=== PATIENT | female | born 1960 | race Caucasian/White ===

== ENCOUNTER 2018-09-20 19:48 | Observation (INO) | payer OTHER ==
[~2018-09-20] VITALS: Ht 165.1 cm; Wt 66.5 kg
[2018-09-20 20:03] LABS: BASO % 0.3 % (0.0-1.0); EOS # 0.1 10^3/uL (0.0-0.50); HEMATOCRIT 38.6 % (36.0-47.0); HEMOGLOBIN 13.1 g/dl (12.0-15.5); LYMPH # 2.7 10^3/uL (1.5-4.5); LYMPH % 29.2 % (24.0-44.0); MEAN CORPUSCULAR HEMOGLOBIN 30.9 pg (27.0-33.0); MEAN CORPUSCULAR HGB CONC 33.9 g/dl (32.0-36.5); MONO # 0.7 10^3/uL (0.0-0.8); MONO % 7.4 % (0.0-5.0); NEUTROPHILS # 5.7 10^3/uL (1.8-7.7); NEUTROPHILS % 61.8 % (36.0-66.0); PLATELET COUNT, AUTOMATED 184 10^3/uL (150-450); RED BLOOD COUNT 4.24 10^6/uL (4.00-5.40); WHITE BLOOD COUNT 9.3 10^3/uL (4.0-10.0)
[2018-09-20] MEDS ORDERED: ONDANSETRON 4MG/2ML VIAL (J2405) IV ONE (20:15)
[2018-09-20] MEDS ORDERED: NS 1,000 ML IV ONE ×2 (20:15→22:15)
--- NOTE | 2018-09-20 20:22 | REP ---
Clinical: Acute chest pain . Comparison: None . Findings: The mediastinum and cardiac silhouette are stable and within normal limits for portable technique. The lung lin demonstrate chronic-appearing interstitial changes without acute consolidation, effusion, or pneumothorax. Skeletal structures are intact. Impression: No definite acute cardiopulmonary process appreciated. Electronically Signed by Bo Martinez MD 09/20/2018 08:14 P
[2018-09-20] MEDS ORDERED: ISOVUE-370 76% 100ML VIAL (Q9967) As Ordered ONE (20:23)
[2018-09-20 20:34] LABS: BLOOD UREA NITROGEN 22 MG/DL (7-18); CARBON DIOXIDE LEVEL 22 MEQ/L (21-32); CHLORIDE LEVEL 103 MEQ/L (98-107); CPK CREATINE PHOSPHOKINASE 143 U/L (26-192); CREATININE FOR GFR 0.85 MG/DL (0.55-1.30); ETHYL ALCOHOL (ETHANOL) < 0.003 % (0.000-0.010); GLOMERULAR FILTRATION RATE > 60.0 (>51); GLUCOSE, FASTING 184 MG/DL (70-100); POTASSIUM SERUM 3.2 MEQ/L (3.5-5.1); SODIUM LEVEL 138 MEQ/L (136-145); TROPONIN I 0.03 NG/ML (< 0.10)
--- NOTE | 2018-09-20 21:29 | REPVR ---
EXAM: CT Head Without Contrast EXAM DATE/TIME: 09/20/2018 8:48 PM CLINICAL HISTORY: 58 years old, female; Signs and symptoms; Dizziness; Additional info: Intractable dizziness, neck pain TECHNIQUE: Imaging protocol: Axial computed tomography images of the head without contrast. Radiation optimization: All CT scans at this facility use at least one of these dose optimization techniques: automated exposure control; mA and/or kV adjustment per patient size (includes targeted exams where dose is matched to clinical indication); or iterative reconstruction. COMPARISON: No relevant prior studies available. FINDINGS: Brain: There is no evidence of intracranial bleed. There is no evidence of mass effect. The carter-white differentiation appears preserved. Ventricles: Normal appearing ventricles. Bones/joints: There is no evidence of fracture. Sinuses: There is opacification of the left maxillary sinus consistent with changes of sinusitis. Clear ethmoid sinuses. Mastoid air cells: Clear mastoid air cells. Soft tissues: Unremarkable. IMPRESSION: 1. No evidence of bleed. 2. No evidence of mass effect. Electronically signed by: Chino Du On 09/20/2018 21:29:03 PM
[2018-09-20 21:50] LABS: AMPHETAMINES LEVEL URINE NEGATIVE (NEGATIVE); BARBITURATES URINE NEGATIVE (NEGATIVE); BENZODIAZEPINES URINE NEGATIVE (NEGATIVE); CANNABINOIDS URINE NEGATIVE (NEGATIVE); COCAINE METABOLITE URINE NEGATIVE (NEGATIVE); METHADONE URINE NEGATIVE (NEGATIVE); OPIATES URINE NEGATIVE (NEGATIVE); PHENCYCLIDINE URINE NEGATIVE (NEGATIVE)
--- NOTE | 2018-09-20 21:52 | REPVR ---
EXAM: CT Angiography Head With Contrast EXAM DATE/TIME: 09/20/2018 8:48 PM CLINICAL HISTORY: 58 years old, female; Signs and symptoms; Dizziness and giddiness; Additional info: Intractable dizziness, neck pain TECHNIQUE: Imaging protocol: Axial computed tomographic angiography images of the head with intravenous contrast using CT angiography protocol. 3D rendering: MIP and/or 3D reconstructed images were created and reviewed. COMPARISON: No relevant prior studies available. FINDINGS: Right internal carotid artery: Unremarkable. Intracranial segment is patent with no significant stenosis. No aneurysm. Right anterior cerebral artery: Unremarkable. No occlusion or significant stenosis. No aneurysm. Right middle cerebral artery: Unremarkable. No occlusion or significant stenosis. No aneurysm. Right posterior cerebral artery: Unremarkable. No occlusion or significant stenosis. No aneurysm. Right vertebral artery: Unremarkable. No occlusion or significant stenosis. No aneurysm. Left internal carotid artery: Unremarkable. Intracranial segment is patent with no significant stenosis. No aneurysm. Left anterior cerebral artery: Unremarkable. No occlusion or significant stenosis. No aneurysm. Left middle cerebral artery: Unremarkable. No occlusion or significant stenosis. No aneurysm. Left posterior cerebral artery: Unremarkable. No occlusion or significant stenosis. No aneurysm. Left vertebral artery: Unremarkable. No occlusion or significant stenosis. No aneurysm. Basilar artery: Unremarkable. No occlusion or significant stenosis. No aneurysm. 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 Near complete opacification of the maxillary sinuses bilaterally which are hypoplastic. IMPRESSION: 1. Normal CTA Of the Cir., [place]. 2. Normal CTA of the vertebrobasilar system. 3. Complete opacification of the maxillary sinuses bilaterally. They appear hypoplastic. EXAM: CT Angiography Neck With Contrast EXAM DATE/TIME: 09/20/2018 8:48 PM CLINICAL HISTORY: 58 years old, female; Signs and symptoms; Dizziness and giddiness; Additional info: Intractable dizziness, neck pain TECHNIQUE: Imaging protocol: Axial computed tomographic angiography images of the neck with intravenous contrast using CT angiography protocol. Coronal and sagittal reformatted images were created and reviewed. 3D rendering: MIP reconstructed images were created and reviewed. MIP and/or 3D reconstructed images were created and reviewed. Radiation optimization: All CT scans at this facility use at least one of these dose optimization techniques: automated exposure control; mA and/or kV adjustment per patient size (includes targeted exams where dose is matched to clinical indication); or iterative reconstruction. Contrast material: ISOVUE 370; Contrast volume: 100 ml; Contrast route: IV; COMPARISON: No relevant prior studies available. FINDINGS: Artifact related to dental fillings and motion artifact degrade the images of the neck. VASCULATURE: Right common carotid artery: Normal. No stenosis. No dissection or occlusion. Right internal carotid artery: The right mid internal carotid artery is not optimally delineated secondary to motion and artifact generated by dental fillings.. There is a suggestion of an approximate 15% stenosis. Right external carotid artery: Normal. No occlusion or stenosis. Right vertebral artery: Normal. No stenosis. No dissection or occlusion. Left common carotid artery: Normal. No stenosis. No dissection or occlusion. Left internal carotid artery: Calcified plaque noted in the left carotid bulb extending into the proximal internal carotid artery. No stenosis in the left internal carotid artery. Left external carotid artery: Normal. No stenosis. No dissection or occlusion. Left vertebral artery: Normal. No stenosis. No dissection or occlusion. Other vasculature: NECK: Bones/joints: No acute fracture. Soft tissues: Normal. No significant soft tissue swelling. IMPRESSION: 1. Suboptimal examination due to motion artifact. 2. Approximate 50% stenosis of the right mid internal carotid artery. 3. Plaque in the left carotid bulb extending into the proximal internal carotid artery. No stenosis. 4. Normal CTA of the vertebrobasilar system. COMMENT: Reference per NASCET criteria for degree of stenosis: Mild: less than 50% stenosis. Moderate: 50-69% stenosis. Severe: 70-94% stenosis. Near occlusion: 95-99% stenosis. Electronically signed by: Елена Sutton On 09/20/2018 21:52:05 PM
[2018-09-20] MEDS ORDERED: LORazepam 2 MG/ML VIAL (J2060) IV STA (22:06)
[2018-09-20] MEDS: MECLIZINE 25 MG TABLET PO ONE ×2 (22:15→22:17)
[2018-09-20] MEDS ORDERED: METOCLOPRAMIDE INJ 10MG/2ML VIAL (J2765) IV ONE (22:15)
[2018-09-20] MEDS ORDERED: POTASSIUM CHLORIDE 10 MEQ SR TABLET PO ONE (23:15)
--- NOTE | 2018-09-21 00:01 | REPVR ---
EXAM: MR Head Without Contrast EXAM DATE/TIME: 09/20/2018 10:06 PM CLINICAL HISTORY: 58 years old, female; Signs and symptoms; Dizziness; Additional info: Intractable dizziness TECHNIQUE: Imaging protocol: MR of the head without contrast. COMPARISON: CT Head without contrast 09/20/2018 8:24 PM FINDINGS: Brain: There is no evidence of abnormal bright signal intensity within the brain. There is no evidence of mass effect. Brainstem: The brainstem is normal in size. Ventricles: Normal appearing ventricles. Bones/joints: Unremarkable. Soft tissues: Normal. Sinuses: There is opacification of the maxillary sinuses bilaterally consistent with changes of chronic sinusitis. Mucous retention cysts or polyps could not be excluded. Mastoid air cells: Normal as visualized. No mastoid effusion. Orbits: Unremarkable. Sella: The suprasellar or pineal region appears within the range of normal. Other vasculature: The vessels of the ute of [place] have a normal signal void. IMPRESSION: Normal upper MRI scan of brain. Opacification of the maxillary sinuses consistent with changes of previous sinusitis. Electronically signed by: Chino Du On 09/21/2018 00:00:34 AM
[2018-09-21] MEDS ORDERED: CO Q200C10 PO (00:27)
[2018-09-21] MEDS ORDERED: B COTAB3 PO (00:27)
[2018-09-21] MEDS ORDERED: ALL10TAB28 PO (00:27)
[2018-09-21] MEDS ORDERED: OMEP-221 PO (00:27)
[2018-09-21] MEDS ORDERED: PRESCAP PO (00:27)
[2018-09-21] MEDS ORDERED: NS 1,000 ML IV SCH (01:00)
--- NOTE | 2018-09-21 01:21 | HPEPDOC ---
General Date of Admission September 21, 2018 at 00:18 Date of Service: September 21, 2018 Chief Complaint The patient is a 58-year-old female admitted with a reason for visit of Vertigo. Source: Patient, Family, RN/MD Exam Limitations: Clinical conditions Severity: Severe Associated Symptoms: Nausea, Vomiting, Dizziness History of Present Illness 58 year old female with PMH of GERD and Macular degeneration presented to the ED with sudden onsent vertigo. The patient was at a healthcare receptionist this evening. At around 7 pm she was coming out of te restruant and had to walk down several flights of stairs .As she reached the bottom she suddenly felt nauseous and dizzy she sat down at the bottom stairs but the symptoms did not improve. She could not open her eyes as everything was spinning. She was brought to the ED. In the ED she had an extensive work up done including MRI of brain and CT angio of the neck both of which were negative. She got a dose of meclizine and ativan in the ED. by she threw up the meclizine. She continued to have persistent symptoms and could not even sit up in bed without feeling nauseous and throwing up. On My interview patient she is lying down still in bed with her eyes closed. She says opening her eyes is making her nauseous as everything is spinning. Does not want to move her head from side to side as that also is giving her spinning sensation. SHe is unable to roll from side to side as she feels that she is going to fall off the bed and is becoming extremely nauseous. Unable to sit up or stand. She is being admitted for acute Vertigo. Home Medications Scheduled Omeprazole (Omeprazole) 40 Mg Capsule.dr, 40 MG PO DAILY, (Reported) Ubidecarenone (Co Q-10) 200 Mg Capsule, 200 MG PO DAILY, (Reported) Vit A/Vit C/Vit E/Zinc/Copper (Preservision Areds Softgel) 1 Each Capsule, 1 CAP PO BID, (Reported) Vitamin B Complex (Vitamin B Complex) 1 Each Tablet, 1 TAB PO DAILY, (Reported) Scheduled PRN Cetirizine HCl (Cetirizine HCl) 10 Mg Tablet, 10 MG PO QPM PRN for ALLERGIES, (Reported) Allergies Coded Allergies: Penicillins (Unverified Allergy, Unknown, 09/21/18) Sulfa (Sulfonamide Antibiotics) (Verified Allergy, Unknown, 09/20/18) Past Medical History Medical History GERD, Macular degeneration Surgical History Left knee arthroscopy Family History Reviewed with patient no significant family history Social History * Smoker: Denies Alcohol: Denies Drugs: denies A-FIB/CHADSVASC A-FIB History Current/History of A-Fib/PAF?: No Review of Systems Constitutional: Denies: Chills, Fever, Night Sweats Eyes: Denies: Pain, Vision change ENT: Denies: Head Aches, Ear Pain, Dysphagia Skin: Denies: Rash, Lesions, Breakdown Pulmonary: Denies: Dyspnea, Cough Cardiovascular: Denies: Chest Pain, Palpitations, Orthopnea, Paroxysmal Noc. Dyspnea, Lt Headedness Gastrointestinal: Reports: Nausea, Vomiting Hematologic: Denies: Bruising, Bleeding Excessively Musculoskeletal: Denies: Neck Pain, Back Pain, Joint Pain, Muscle Pain, Spasms Neurological: Denies: Weakness, Numbness, Change in speech, Confusion Psych: Reports: Mood Normal; Denies: Depression, Memory Issues Physical Examination General Exam: Positive: Alert, Cooperative, Moderate Distress Eye Exam: Positive: PERRLA, Conjunctiva & lids normal, Other Eye Symptoms (very prominent Horizontal nystagmus noted with the fast compoment in both directions depending on which side the head is turned.) ENT Exam: Positive: Atraumatic, Mucous membr. moist/pink, Pharynx Normal, Tympanic Membranes Normal, Ext Auditory Canal Nml, Pinna Normal Neck Exam: Positive: Supple; Negative: JVD, thyromegaly Chest Exam: Positive: Clear to auscultation, Normal air movement Heart Exam: Positive: Rate Normal, Regular Rhythm, Normal S1, Normal S2; Negative: Murmurs, Rubs Abdomen Exam: Positive: Normal bowel sounds, Soft; Negative: Tenderness, Hepatospenomegaly Extremity Exam: Positive: Normal pulses; Negative: Clubbing, Cyanosis, Edema Skin Exam: Positive: Nl turgor and temperature; Negative: Breakdown, Lesion Neuro Exam: Positive: Strength at 5/5 X4 ext, Normal Tone Vital Signs Vital Signs Date Time Temp Pulse Resp B/P (MAP) Pulse Ox O2 Delivery O2 Flow Rate FiO2 09/21/18 00:15 110 18 98 Room Air 09/20/18 22:45 135/66 (89) 09/20/18 21:06 96.1 Laboratory Data Labs 24H Laboratory Tests 2 09/20/18 19:57: Immature Granulocyte % (Auto) 0.3, White Blood Count 9.3, Red Blood Count 4.24, Hemoglobin 13.1, Hematocrit 38.6, Mean Corpuscular Volume 91.0, Mean Corpuscular Hemoglobin 30.9, Mean Corpuscular Hemoglobin Concent 33.9, Red Cell Distribution Width 12.9, Platelet Count 184, Neutrophils (%) (Auto) 61.8, Lymphocytes (%) (Auto) 29.2, Monocytes (%) (Auto) 7.4H, Eosinophils (%) (Auto) 1.0, Basophils (%) (Auto) 0.3, Neutrophils # (Auto) 5.7, Lymphocytes # (Auto) 2.7, Monocytes # (Auto) 0.7, Eosinophils # (Auto) 0.1, Basophils # (Auto) 0.0, Nucleated Red Blood Cells % (auto) 0.0, Anion Gap 13, Glomerular Filtration Rate > 60.0, Blood Urea Nitrogen 22H, Creatinine 0.85, Sodium Level 138, Potassium Level 3.2L, Chloride Level 103, Carbon Dioxide Level 22, Calcium Level 9.0, Total Creatine Kinase 143, Creatine Kinase MB 2.0, Creatine Kinase MB Relative Index 1.40, Troponin I 0.03, Ethyl Alcohol Level < 0.003 09/20/18 20:13: POC Glucose (Misc Panel) 191H, POC Sodium (Misc Panel) 137, POC Potassium (Misc Panel) 3.1L, POC Chloride (Misc Panel) 101, POC Total CO2 (Misc Panel) 25.0, POC Blood Urea Nitrogen (Misc Panel 23, POC Ionized Calcium (Misc Panel) 4.4L, POC Creatinine (Misc Panel) 0.8, POC Hematocrit (Misc Panel) 39.0 09/20/18 21:06: Urine Color YELLOW, Urine Appearance HAZY, Urine pH 6.0, Urine Specific [place] 1.026, Urine Protein NEGATIVE, Urine Glucose (UA) 1+H, Urine Ketones 1+H, Urine Blood NEGATIVE, Urine Nitrite NEGATIVE, Urine Bilirubin NEGATIVE, Urine Urobilinogen 0.2, Urine Leukocyte Esterase NEGATIVE, Urine WBC (Auto) 1, Urine RBC (Auto) 1, Urine Hyaline Casts (Auto) 1, Urine Bacteria (Auto) NEGATIVE, Urine Squamous Epithelial Cells 0, Urine Sperm (Auto) , Lactic Acid Level 1.5, Urine Amphetamines Screen NEGATIVE, Urine Benzodiazepines Screen NEGATIVE, Urine Opiates Screen NEGATIVE, Urine Methadone Screen NEGATIVE, Urine Barbiturates Screen NEGATIVE, Urine Phencyclidine Screen NEGATIVE, Urine Cocaine Metabolite Screen NEGATIVE, Urine Cannabinoids Screen NEGATIVE CBC/BMP Laboratory Tests 09/20/18 19:57 Red Blood Count 4.24, Mean Corpuscular Volume 91.0, Mean Corpuscular Hemoglobin 30.9, Mean Corpuscular Hemoglobin Concent 33.9, Red Cell Distribution Width 12.9, Neutrophils (%) (Auto) 61.8, Lymphocytes (%) (Auto) 29.2, Monocytes (%) (Auto) 7.4 H, Eosinophils (%) (Auto) 1.0, Basophils (%) (Auto) 0.3, Neutrophils # (Auto) 5.7, Lymphocytes # (Auto) 2.7, Monocytes # (Auto) 0.7, Eosinophils # (Auto) 0.1, Basophils # (Auto) 0.0, Calcium Level 9.0, Total Creatine Kinase 143 Assessment/Plan 58 year old female with PMH of GERD and Macular degeneration presented to the ED with sudden onsent vertigo. The patient was at a healthcare receptionist this evening. At around 7 pm she was coming out of the restaurant and had to walk down several flights of stairs .As she reached the bottom she suddenly felt nauseous and dizzy she sat down at the bottom stairs but the symptoms did not improve. She could not open her eyes as everything was spinning. She was brought to the ED. In the ED she had an extensive work up done including MRI of brain and CT angio of the neck both of which were negative. She got a dose of meclizine and ativan in the ED. by she threw up the meclizine. She continued to have persistent symptoms and could not even sit up in bed without feeling nauseous and throwing up. On My interview patient she is lying down still in bed with her eyes closed. She says opening her eyes is making her nauseous as everything is spinning. Does not want to move her head from side to side as that also is giving her spinning sensation. She is unable to roll from side to side as she feels that she is going to fall off the bed and is becoming extremely nauseous. Unable to sit up or stand. SHe is being admitted for acute Vertigo. Vertigo acute stroke ruled out. RI of brain negative. most probably vestibular neuronitis or Labyrinthitis Vs BPPV. will give meclizine and zofran. PT for vestibular function evaluation GERD/ Hiatal hernia [place] prn. Chronic Maxillary Sinusitis Bilateral seen in CT follow up with ENT outpatient DVT prophylaxis ordered. Plan / VTE VTE Prophylaxis Ordered?: Yes SURYA SEALS MD September 21, 2018 01:21
[2018-09-21 02:00] VITALS: BP 129/69
[2018-09-21] MEDS: KCL 40MEQ in NS 1000ML 1,000 ML IV SCH ×2 (03:52→05:52)
[2018-09-21] MEDS: ONDANSETRON 4MG/2ML VIAL (J2405) IV SCH ×4 (03:52→21:48)
[2018-09-21] MEDS: KCL 10MEQ/100ML SWI (KRUN) 10 MEQ in APPROPRIATE DILUENT 1 EA IV SCH ×2 (03:52→04:56)
[2018-09-21] MEDS: MECLIZINE 25 MG TABLET PO SCH ×3 (05:39→21:48)
[2018-09-21 06:00] VITALS: BP 156/79
--- NOTE | 2018-09-21 06:31 | ECGEPIP ---
[facility] - ED Test Date: 2018-09-20 Pat Name: JUANITO PEARCE Department: Room: - Gender: Female General Adjuster: JOSETTE : 1960 Requested By: PATTY Velasco Order Number: [id number] Reading MD: Pedro Luis Cha Measurements Intervals [place] Rate: 78 P: 54 RI: 146 QRS: 38 QRSD: 94 T: 30 QT: 413 QTc: 471 Interpretive Statements SINUS RHYTHM NONSPECIFIC ST T WAVE CHANGES PROLONGED QTC POSSIBLE U WAVE NO OLD ECG FOR COMPARISON Electronically Signed on 09-21-2018 6:31:23 EDT by Pedro Luis Cha
[2018-09-21 07:08] LABS: BLOOD UREA NITROGEN 12 MG/DL (7-18); CALCIUM LEVEL 8.9 MG/DL (8.5-10.1); CARBON DIOXIDE LEVEL 24 MEQ/L (21-32); CHLORIDE LEVEL 106 MEQ/L (98-107); CREATININE FOR GFR 0.62 MG/DL (0.55-1.30); GLOMERULAR FILTRATION RATE > 60.0 (>51); GLUCOSE, FASTING 106 MG/DL (70-100); SODIUM LEVEL 137 MEQ/L (136-145)
[2018-09-21] MEDS: ENOXAPARIN 30 MG/0.3 ML SYR (J1650) SC SCH (09:46)
[2018-09-21] MEDS: LORazepam 1 MG TAB PO PRN (13:28)
[2018-09-21 14:00] VITALS: BP 130/65
--- NOTE | 2018-09-21 15:46 | IPNPDOC ---
Date Seen The patient was seen on 09/21/18. Progress Note SUBJECTIVE: Patient continues to complain of severe vertigo associated with nausea and vomiting mild improvement after meclizine. Otherwise no significant change for the time of her presentation [otherwise patient denies chest pain, shortness breath, OBJECTIVE PHYSICAL EXAMINATION: VITAL SIGNS: Please see below. GENERAL: Pleasant female lying flat in bed with her eyes closed awake alert oriented speaking in complete sentences no acute distress, appears lethargic does not cooperate with exam HEENT: Moist mucous membranes no elevation and CVP, Horizontal nystagmus CARDIOVASCULAR: S1 S2 regular no additional heart sounds appreciated. RESPIRATORY: Clear to auscultation bilaterally., ABDOMINAL: Bowel sounds present abdomen soft and nontender EXTREMITIES: No clubbing cyanosis or edema NEUROLOGICAL: Spontaneously moves all 4 extremities cranial 2 through 12 grossly intact no gross focal deficits appreciated PSYCHOLOGICAL: Appropriate LABORATORY DATA, MICROBIOLOGY: Please see below. IMAGING STUDIES: Chest x-ray:No definite acute cardiopulmonary process appreciated. Next CTA:. Normal CTA Of the Cir., [place]. 2. Normal CTA of the vertebrobasilar system. 3. Complete opacification of the maxillary sinuses bilaterally. They appear hypoplastic. 1. Suboptimal examination due to motion artifact. 2. Approximate 50% stenosis of the right mid internal carotid artery. 3. Plaque in the left carotid bulb extending into the proximal internal carotid artery. No stenosis. 4. Normal CTA of the vertebrobasilar system. Head CTA:1. No evidence of bleed. 2. No evidence of mass effect. Brain MRI:Normal upper MRI scan of brain. Opacification of the maxillary sinuses consistent with changes of previous sinusitis. DVT prophylaxis ordered?: Lovenox ASSESSMENT AND PLAN: This is a 58-year-old woman with vertigo. PROBLEMS: 1. Vertigo: Possibly labyrinthitis versus BPPV, the etiology is not immediately clear she denied any tinnitus with relatively rapid onset. She is unable to participate with the Margarita-Hallpike or vestibular exercises at this time. I'll provide her with Ativan in addition to her meclizine and Zofran to see if we are able to get her more comfortable enough and reattempt tomorrow or imaging thus far is been fairly negative and unimpressive. 2. Seasonal allergies: Her on cetirizine is able to tolerate keep down by mouth. 3. Gastroesophageal reflux disease: Her home omeprazole currently on hold will resume when she is able to keep medications and food down currently she is too nauseous DISPOSITION: Pending improvement in her symptoms. VS, I&O, 24H, Fishbone Vital Signs/I&O Vital Signs Date Time Temp Pulse Resp B/P (MAP) Pulse Ox O2 Delivery O2 Flow Rate FiO2 09/21/18 09:56 99.0 09/21/18 06:00 82 17 156/79 (104) 98 09/21/18 01:30 Room Air I&O- Last 24 Hours up to 6 AM 09/21/18 06:00 Intake Total 1250 ml Output Total 600 ml Balance 650 ml Laboratory Data 24H LABS Laboratory Tests 2 09/20/18 19:57: Immature Granulocyte % (Auto) 0.3, White Blood Count 9.3, Red Blood Count 4.24, Hemoglobin 13.1, Hematocrit 38.6, Mean Corpuscular Volume 91.0, Mean Corpuscular Hemoglobin 30.9, Mean Corpuscular Hemoglobin Concent 33.9, Red Cell Distribution Width 12.9, Platelet Count 184, Neutrophils (%) (Auto) 61.8, Lymphocytes (%) (Auto) 29.2, Monocytes (%) (Auto) 7.4H, Eosinophils (%) (Auto) 1.0, Basophils (%) (Auto) 0.3, Neutrophils # (Auto) 5.7, Lymphocytes # (Auto) 2.7, Monocytes # (Auto) 0.7, Eosinophils # (Auto) 0.1, Basophils # (Auto) 0.0, Nucleated Red Blood Cells % (auto) 0.0, Anion Gap 13, Glomerular Filtration Rate > 60.0, Blood Urea Nitrogen 22H, Creatinine 0.85, Sodium Level 138, Potassium Level 3.2L, Chloride Level 103, Carbon Dioxide Level 22, Calcium Level 9.0, Total Creatine Kinase 143, Creatine Kinase MB 2.0, Creatine Kinase MB Relative Index 1.40, Troponin I 0.03, Ethyl Alcohol Level < 0.003 09/20/18 20:13: POC Glucose (Misc Panel) 191H, POC Sodium (Misc Panel) 137, POC Potassium (Misc Panel) 3.1L, POC Chloride (Misc Panel) 101, POC Total CO2 (Misc Panel) 25.0, POC Blood Urea Nitrogen (Misc Panel 23, POC Ionized Calcium (Misc Panel) 4.4L, POC Creatinine (Misc Panel) 0.8, POC Hematocrit (Misc Panel) 39.0 09/20/18 21:06: Urine Color YELLOW, Urine Appearance HAZY, Urine pH 6.0, Urine Specific [place] 1.026, Urine Protein NEGATIVE, Urine Glucose (UA) 1+H, Urine Ketones 1+H, Urine Blood NEGATIVE, Urine Nitrite NEGATIVE, Urine Bilirubin NEGATIVE, Urine Urobilinogen 0.2, Urine Leukocyte Esterase NEGATIVE, Urine WBC (Auto) 1, Urine RBC (Auto) 1, Urine Hyaline Casts (Auto) 1, Urine Bacteria (Auto) NEGATIVE, Urine Squamous Epithelial Cells 0, Urine Sperm (Auto) , Lactic Acid Level 1.5, Urine Amphetamines Screen NEGATIVE, Urine Benzodiazepines Screen NEGATIVE, Urine Opiates Screen NEGATIVE, Urine Methadone Screen NEGATIVE, Urine Barbiturates Screen NEGATIVE, Urine Phencyclidine Screen NEGATIVE, Urine Cocaine Metabolite Screen NEGATIVE, Urine Cannabinoids Screen NEGATIVE 09/21/18 06:20: Anion Gap 7L, Glomerular Filtration Rate > 60.0, Blood Urea Nitrogen 12, Creat inine 0.62, Sodium Level 137, Potassium Level 4.0#, Chloride Level 106, Carbon Dioxide Level 24, Calcium Level 8.9 CBC/BMP Laboratory Tests 09/20/18 19:57 Red Blood Count 4.24, Mean Corpuscular Volume 91.0, Mean Corpuscular Hemoglobin 30.9, Mean Corpuscular Hemoglobin Concent 33.9, Red Cell Distribution Width 12.9, Neutrophils (%) (Auto) 61.8, Lymphocytes (%) (Auto) 29.2, Monocytes (%) (Auto) 7.4 H, Eosinophils (%) (Auto) 1.0, Basophils (%) (Auto) 0.3, Neutrophils # (Auto) 5.7, Lymphocytes # (Auto) 2.7, Monocytes # (Auto) 0.7, Eosinophils # (Auto) 0.1, Basophils # (Auto) 0.0, Calcium Level 9.0, Total Creatine Kinase 143 09/21/18 06:20 Calcium Level 8.9 VINNY WOLF MD September 21, 2018 15:46
[2018-09-21 22:00] VITALS: BP 122/63
[2018-09-22] MEDS: ONDANSETRON 4MG/2ML VIAL (J2405) IV SCH ×4 (03:05→21:14)
[2018-09-22] MEDS: MECLIZINE 25 MG TABLET PO SCH ×3 (05:18→21:14)
[2018-09-22 06:00] VITALS: BP 121/72
[2018-09-22 07:08] LABS: HEMATOCRIT 40.5 % (36.0-47.0); HEMOGLOBIN 13.2 g/dl (12.0-15.5); MEAN CORPUSCULAR HEMOGLOBIN 29.5 pg (27.0-33.0); MEAN CORPUSCULAR HGB CONC 32.6 g/dl (32.0-36.5); MEAN CORPUSCULAR VOLUME 90.4 fl (80.0-96.0); PLATELET COUNT, AUTOMATED 183 10^3/uL (150-450); RED BLOOD COUNT 4.48 10^6/uL (4.00-5.40); WHITE BLOOD COUNT 5.6 10^3/uL (4.0-10.0)
[2018-09-22 07:29] LABS: BLOOD UREA NITROGEN 16 MG/DL (7-18); CALCIUM LEVEL 9.2 MG/DL (8.5-10.1); CARBON DIOXIDE LEVEL 26 MEQ/L (21-32); CHLORIDE LEVEL 110 MEQ/L (98-107); CREATININE FOR GFR 0.84 MG/DL (0.55-1.30); GLOMERULAR FILTRATION RATE > 60.0 (>51); GLUCOSE, FASTING 79 MG/DL (70-100); POTASSIUM SERUM 3.9 MEQ/L (3.5-5.1); SODIUM LEVEL 141 MEQ/L (136-145)
[2018-09-22] MEDS: ENOXAPARIN 30 MG/0.3 ML SYR (J1650) SC SCH (09:07)
[2018-09-22 14:00] VITALS: BP 135/75
--- NOTE | 2018-09-22 14:56 | IPNPDOC ---
Text Note Date of Service The patient was seen on 09/22/18. NOTE SUBJECTIVE: Ms. Osorio is laying in bed and appears comfortable and pleasant on exam, she states she has a slight b/l frontal headache but no other complaints, she states she feels much better now than when she first came in, she does not think the room is spinning anymore. Denied CP, SOB or chills/fevers. ROS: 12 point ROS was reviewed and negative except for what is positive in subjective portion of note OBJECTIVE PHYSICAL EXAMINATION: VITAL SIGNS: Please see below. GENERAL: Pleasant 58 y/o female appearing her stated age, laying in bed, comfortable. NAD. Awake alert oriented speaking in complete sentences HEENT: Moist mucous membranes no JVD appreciated, EOMI CARDIOVASCULAR: S1 S2 regular no additional heart sounds appreciated RESPIRATORY: Clear to auscultation bilaterally without wheezing or rales/crackles ABDOMINAL: nabsx4, no hepatosplenomegaly, no distension, no rebound ridgity or guarding, abdomen is soft and nontender EXTREMITIES: No clubbing cyanosis or edema NEUROLOGICAL: Spontaneously moves all 4 extremities, no focal deficits appreciated PSYCHOLOGICAL: Appropriate affect LABORATORY DATA, MICROBIOLOGY: Please see below. ASSESSMENT AND PLAN: This is a 58-year-old woman with vertigo. PROBLEMS: 1. Vertigo -likely BPPV although the etiology is not immediately clear. She states she did not have reoccurrence of her symptoms with luisa hallpike maneuver. She feels a lot better now, she doesn't think the room is spinning any longer. NO ringing in the ears nor hearing loss. She states the ativan helped her sleep last night and she really needed that. Denied nausea. She needs to clear physical therapy and then can likely d/c home pending clinical course. 2. Seasonal allergies -c/w cetirizine when she can tolerate pills 3. Gastroesophageal reflux disease - Her home omeprazole currently on hold will resume when she is able to tolerate pills, can consider adding today 4. Headache -The patient did not want any pain medication, just wanted to wait it out, could be related to dehydration, no associated change in vision. Monitor for now. DISPOSITION: Pending physical therapy clearance VS,Fishbone, I+O VS, Fishbone, I+O Laboratory Tests 09/22/18 06:15 Red Blood Count 4.48, Mean Corpuscular Volume 90.4, Mean Corpuscular Hemoglobin 29.5, Mean Corpuscular Hemoglobin Concent 32.6, Red Cell Distribution Width 13.1, Calcium Level 9.2 Vital Signs Date Time Temp Pulse Resp B/P (MAP) Pulse Ox O2 Delivery O2 Flow Rate FiO2 09/22/18 14:00 97.9 68 18 135/75 (95) 98 09/21/18 01:30 Room Air I&O- Last 24 Hours up to 6 AM 09/22/18 06:00 Intake Total 1435 ml Output Total 1815 ml Balance -380 ml GME ATTESTATION GME ATTESTATION My faculty preceptor for this patient encounter was physically present during the encounter and was fully available. All aspects of the patient interview, examination, medical decision making process, and medical care plan development were reviewed and approved by the faculty preceptor. The faculty preceptor is aware and concurs with the plan as stated in the body of this note and will attest to such by his/her cosignature. ATTENDING NOTE I saw and evaluated the patient. I agree with the findings and plan of care as documented in the resident's note CHIKI MAY DO September 22, 2018 14:56 VINNY WOLF MD September 26, 2018 14:55
[2018-09-22] MEDS: LORazepam 1 MG TAB PO PRN (21:16)
[2018-09-22 22:00] VITALS: BP 139/72
[2018-09-23] MEDS: MECLIZINE 25 MG TABLET PO SCH ×2 (05:32→14:06)
[2018-09-23] MEDS: ONDANSETRON 4MG/2ML VIAL (J2405) IV SCH ×2 (05:32→10:23)
[2018-09-23 06:00] VITALS: BP 119/82
[2018-09-23 06:15] LABS: HEMATOCRIT 41.8 % (36.0-47.0); HEMOGLOBIN 13.8 g/dl (12.0-15.5); MEAN CORPUSCULAR HEMOGLOBIN 30.3 pg (27.0-33.0); MEAN CORPUSCULAR VOLUME 91.7 fl (80.0-96.0); PLATELET COUNT, AUTOMATED 185 10^3/uL (150-450); RED BLOOD COUNT 4.56 10^6/uL (4.00-5.40); WHITE BLOOD COUNT 5.5 10^3/uL (4.0-10.0)
[2018-09-23 07:02] LABS: BLOOD UREA NITROGEN 21 MG/DL (7-18); CALCIUM LEVEL 9.1 MG/DL (8.5-10.1); CARBON DIOXIDE LEVEL 28 MEQ/L (21-32); CHLORIDE LEVEL 108 MEQ/L (98-107); CREATININE FOR GFR 0.89 MG/DL (0.55-1.30); GLOMERULAR FILTRATION RATE > 60.0 (>51); GLUCOSE, FASTING 85 MG/DL (70-100); POTASSIUM SERUM 3.9 MEQ/L (3.5-5.1); SODIUM LEVEL 142 MEQ/L (136-145)
[2018-09-23] MEDS: ENOXAPARIN 30 MG/0.3 ML SYR (J1650) SC SCH (09:00)
[2018-09-23] MEDS ORDERED: ACETAMINOPHEN TAB 650MG DOSE (2X325MG) PO ONE (10:45)
--- NOTE | 2018-09-23 13:41 | IPNPDOC ---
Text Note Date of Service The patient was seen on 09/23/18. NOTE SUBJECTIVE: Ms. Osorio is laying in bed and appears comfortable and pleasant on exam, she states she has a slight b/l frontal headache again, but no other complaints, she feels much better now than when she first came in, she is anxious to go home. Denied CP, SOB or chills/fevers or light headedness or room spinning feeling as in past. ROS: 12 point ROS was reviewed and negative except for what is positive in subjective portion of note OBJECTIVE PHYSICAL EXAMINATION: VITAL SIGNS: Please see below. GENERAL: Pleasant 58 y/o female appearing her stated age, laying in bed, comfortable. NAD. Awake alert oriented speaking in complete sentences HEENT: Moist mucous membranes no JVD appreciated, EOMI CARDIOVASCULAR: S1 S2 regular no additional heart sounds appreciated RESPIRATORY: Clear to auscultation bilaterally without wheezing or rales/crackles ABDOMINAL: nabsx4, no hepatosplenomegaly, no distension, no rebound ridgity or guarding, abdomen is soft and nontender EXTREMITIES: No clubbing cyanosis or edema NEUROLOGICAL: Spontaneously moves all 4 extremities, no focal deficits appreciated PSYCHOLOGICAL: Appropriate affect LABORATORY DATA, MICROBIOLOGY: Please see below. ASSESSMENT AND PLAN: This is a 58-year-old woman with vertigo. PROBLEMS: 1. Vertigo -likely BPPV although the etiology is not immediately clear. She is not having this today. She would like to go home. She feels well. She states she did not have reoccurrence of her symptoms with luisa hallpike maneuver. NO ringing in the ears nor hearing loss. She states the ativan helps her sleep at night. Denied nausea. She needs to clear physical therapy and work with them for vestibular exercises, d/c after this is anticipated. 2. Seasonal allergies -c/w cetirizine 3. Gastroesophageal reflux disease - Her home omeprazole currently on hold but she can have this resumed today 4. Headache -Given tylenol. Could be related to dehydration, no associated change in vision. Monitor for now. DISPOSITION: Pending physical therapy clearance and vestibular training exercises. VS,Fishbone, I+O VS, Fishbone, I+O Laboratory Tests 09/23/18 05:43 Red Blood Count 4.56, Mean Corpuscular Volume 91.7, Mean Corpuscular Hemoglobin 30.3, Mean Corpuscular Hemoglobin Concent 33.0, Red Cell Distribution Width 12.8, Calcium Level 9.1 Vital Signs Date Time Temp Pulse Resp B/P (MAP) Pulse Ox O2 Delivery O2 Flow Rate FiO2 09/23/18 06:00 96.9 56 17 119/82 (94) 96 09/21/18 01:30 Room Air I&O- Last 24 Hours up to 6 AM 09/23/18 06:00 Intake Total 1460 ml Output Total 850 ml Balance 610 ml GME ATTESTATION GME ATTESTATION My faculty preceptor for this patient encounter was physically present during the encounter and was fully available. All aspects of the patient interview, examination, medical decision making process, and medical care plan development were reviewed and approved by the faculty preceptor. The faculty preceptor is aware and concurs with the plan as stated in the body of this note and will attest to such by his/her cosignature. ATTENDING NOTE I saw and evaluated the patient. I agree with the findings and plan of care as documented in the resident's note CHIKI MAY DO September 23, 2018 13:41 VINNY WOLF MD September 26, 2018 15:49
[2018-09-23 14:00] VITALS: BP 125/73
[2018-09-23] MEDS ORDERED: MECL-86 PO (14:17)
--- NOTE | 2018-09-23 14:35 | DS.PDOC ---
Discharge Summary General Date of Admission September 23, 2018 at 12:00 Date of Discharge .28.19 Discharge Summary DISCHARGE DIAGNOSIS: BPPV SECONDARY DIAGNOSIS: 1. GERD PROCEDURES PERFORMED DURING STAY: None CONSULTANTS: None placed HOSPITAL COURSE: During the patient's hospitalization she was treated with meclizine, Ativan and Zofran and she also received vestibular training with physical therapy, all of these interventions dissipated her symptoms. She had head CT, brain MRI that were all found to be benign. On the day of discharge she was feeling well and wanted to go home, she denied having episodes of the room spinning any further. DISCHARGE MEDICATIONS: Please see below. ALLERGIES: Please see below. SUBJECTIVE: Mrs. Osorio is laying in bed and feels a little bit fatigued but otherwise feels very good and is anxious to go home, she denies any more episodes of the room spinning. OBJECTIVE: PHYSICAL EXAMINATION: VITAL SIGNS: Please see below. GENERAL: Pleasant 58-year-old female appearing younger than her stated age, laying in bed, comfortable, no acute distress, speaking in full sentences with out difficulty HEENT: EOMI, moist mucous membranes, no JVD CARDIOVASCULAR: Normal S1 and S2, no murmurs, rubs or gallops appreciated RESPIRATORY: Clear to auscultation bilaterally, no rales, wheezing, crackles appreciated ABDOMINAL: Normoactive bowel sounds 4, no pain to palpation, no rebound rigid ity or guarding, no distention, no hepatosplenomegaly or masses appreciated EXTREMITIES: No clubbing, cyanosis or edema NEUROLOGICAL: She spontaneously moves all 4 extremities, no focal neurologic def icit appreciated PSYCHOLOGICAL: Her affect is appropriate LABORATORY DATA, MICROBIOLOGY: Please see below. IMAGING STUDIES: Chest x-ray performed September 20 demonstrated Impression: No definite acute cardiopulmonary process appreciated. Neck CTA performed 09/20/2018 demonstrated IMPRESSION: 1. Suboptimal examination due to motion artifact. 2. Approximate 50% stenosis of the right mid internal carotid artery. 3. Plaque in the left carotid bulb extending into the proximal internal carotid artery. No stenosis. 4. Normal CTA of the vertebrobasilar system. COMMENT: Reference per NASCET criteria for degree of stenosis: Mild: less than 50% stenosis. Moderate: 50-69% stenosis. Severe: 70-94% stenosis. Near occlusion: 95-99% stenosis. Head CT performed 09/20/2018 showed IMPRESSION: 1. No evidence of bleed. 2. No evidence of mass effect. Brain MRI 09/20/2018 showed IMPRESSION: Normal upper MRI scan of brain. Opacification of the maxillary sinuses consistent with changes of previous sinusitis DVT prophylaxis ordered: lovenox ASSESSMENT AND PLAN: This is a 58-year-old female who was admitted to the hospital for acute onset of vertigo, room spinning and thought to be due to labyrinthitis or BPPV. PROBLEMS: 1. Lightheadedness attributed to labyrinthitis versus BPPV 2. GERD 3. Nausea secondary to #1 DISPOSITION: Stable, patient to be discharged today, she has cleared physical training with vestibular exercises. DISCHARGE CONDITION: Improved and stable PROGNOSIS: Favorable FOLLOW UP: Please follow up with primary care within 1 week of discharge ACTIVITY: As prior to admission DIET: As prior to admission TIME SPENT ON DISCHARGE: 35 minutes Vital Signs/I&Os Vital Signs Date Time Temp Pulse Resp B/P (MAP) Pulse Ox O2 Delivery O2 Flow Rate FiO2 09/23/18 06:00 96.9 56 17 119/82 (94) 96 09/21/18 01:30 Room Air I&O- Last 24 Hours up to 6 AM 09/23/18 06:00 Intake Total 1460 ml Output Total 850 ml Balance 610 ml Laboratory Data Labs 24H Laboratory Tests 2 09/23/18 05:43: Nucleated Red Blood Cells % (auto) 0.0, Anion Gap 6L, Glomerular Filtration Rate > 60.0, Blood Urea Nitrogen 21H, Creatinine 0.89, Sodium Level 142, Potassium Level 3.9, Chloride Level 108H, Carbon Dioxide Level 28, Calcium Level 9.1 CBC/BMP Laboratory Tests 09/23/18 05:43 Red Blood Count 4.56, Mean Corpuscular Volume 91.7, Mean Corpuscular Hemoglobin 30.3, Mean Corpuscular Hemoglobin Concent 33.0, Red Cell Distribution Width 12.8, Calcium Level 9.1 Discharge Medications Scheduled Meclizine HCl (Meclizine HCl) 25 Mg Tablet, 25 MG PO Q8H Omeprazole (Omeprazole) 40 Mg Capsule.dr, 40 MG PO DAILY, (Reported) Ubidecarenone (Co Q-10) 200 Mg Capsule, 200 MG PO DAILY, (Reported) Vit A/Vit C/Vit E/Zinc/Copper (Preservision Areds Softgel) 1 Each Capsule, 1 CAP PO BID, (Reported) Vitamin B Complex (Vitamin B Complex) 1 Each Tablet, 1 TAB PO DAILY, (Reported) Scheduled PRN Cetirizine HCl (Cetirizine HCl) 10 Mg Tablet, 10 MG PO QPM PRN for ALLERGIES, (Reported) Allergies Coded Allergies: Penicillins (Unverified Allergy, Unknown, 09/21/18) Sulfa (Sulfonamide Antibiotics) (Verified Allergy, Unknown, 09/20/18) GME ATTESTATION GME ATTESTATION My faculty preceptor for this patient encounter was physically present during the encounter and was fully available. All aspects of the patient interview, examination, medical decision making process, and medical care plan development were reviewed and approved by the faculty preceptor. The faculty preceptor is aware and concurs with the plan as stated in the body of this note and will attest to such by his/her cosignature. ATTENDING NOTE I saw and evaluated the patient. I agree with the findings and plan of care as documented in the resident's note. I spent 45 minutes coordinating this patient's discharge. CHIKI MAY DO September 23, 2018 14:35 VINNY WOLF MD September 26, 2018 15:50
== END 2018-09-23 15:29 | disposition home or self-care (01) ==
LOC: M ED 19:48 → M ED INP 09-21 00:18 → M MSPAV 09-21 01:42 → INTOOBSV 09-23 12:00 → OBSVTOIN 09-23 12:00
PROVIDERS: ADMIT Internal Medicine Nephrology; ATTEND Internal Medicine
DX: H81.10 Benign paroxysmal vertigo, unspecified ear (principal); K21.9 Gastro-esophageal reflux disease without esophagitis; H35.30 Unspecified macular degeneration; Z79.899 Other long term (current) drug therapy; Z88.0 Allergy status to penicillin; Z88.2 Allergy status to sulfonamides
CPT/HCPCS: 36415; 70450; 70496; 70498; 70551; 71045; 80047; 80048; 80307; 81001; 82550; 82553; 83605; 84484; 85025; 85027; 93005; 93041; 94760; 96361; 96372; 96374; 96375; 96376; 97112; 97116; 97161; 97530; 99285; G0480; J1650; J2060; J2405; J2765; Q9967

== ENCOUNTER 2018-09-25 09:35 | Outpatient (RCR) | payer OTHER ==
[~2018-09-25 09:35] MED LIST: ALL10TAB28 PO; B COTAB3 PO; CO Q200C10 PO; MECL-86 PO; OMEP-221 PO; PRESCAP PO
== END 2018-09-26 ==
LOC: M PT 09:35
PROVIDERS: ATTEND Internal Medicine
DX: R42 Dizziness and giddiness (principal)

== ENCOUNTER → 2019-01-06 | Outpatient (CLI) | payer OTHER ==
[~2019-01-06] MED LIST changes: -ALL10TAB28 PO; +ALL10TAB29 PO
--- NOTE | 2019-01-07 08:05 | REP ---
MRI LEFT KNEE: There may be some fraying along the undersurface of the posterior horn of the lateral meniscus. Otherwise no meniscal tear is seen. The cruciate and collateral ligaments appear intact. The extensor mechanism is intact. 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 There is moderate chondromalacia along the medial femoral condyle and tibial plateau with a focal cartilaginous defect of the medial femoral condyle at the weightbearing surface approximately 8 x 11 mm with a cartilaginous flap within the defect. There is a moderate joint effusion. There is a smooth patellar plica. Cyst in the medial popliteal fossa measures approximately 3.6 x 1.6 x 1.9 cm. IMPRESSION: The study is somewhat limited due to patient motion. There may be some fraying along the undersurface of the posterior horn of the lateral meniscus. The cruciate and collateral ligaments are intact. 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 There is moderate chondromalacia of the medial femoral condyle and tibial plateau with a focal cartilaginous defect of the weightbearing surface of the medial femoral condyle measuring 8 x 11 mm with a cartilaginous flap within the defect. Moderate joint effusion. Popliteal cyst. Suprapatellar plica. Electronically Signed by Kenneth Bustamante MD 01/08/2019 08:02 A
== END ==
LOC: M RAD 18:12
PROVIDERS: ATTEND Orthopaedic Surgery Sports Medicine
DX: S83.8X2A Sprain of other specified parts of left knee, initial encounter (principal); X58.XXXA Exposure to other specified factors, initial encounter; Y92.89 Other specified places as the place of occurrence of the external cause; Y93.9 Activity, unspecified; Y99.9 Unspecified external cause status